=== PATIENT | male | born 1995 | race Caucasian/White ===

== ENCOUNTER 2016-10-03 09:57 | Emergency (ER) | payer SELFPAY ==
[~2016-10-03] VITALS: Ht 172.7 cm; Wt 70.1 kg
[2016-10-03 10:00] VITALS: BP 143/90
[2016-10-03] MEDS ORDERED: FAMOTIDINE 20 MG TABLET ONE (11:11)
[2016-10-03] MEDS ORDERED: MAALOX/HYOSCYAMINE/LIDOCAINE 45 ML BOTTLE ONE (11:11)
[2016-10-03] MEDS ORDERED: MAALOX/HYOSCYAMINE/LIDOCAINE 45 ML BOTTLE PO ONE (11:30)
[2016-10-03] MEDS ORDERED: FAMOTIDINE 20 MG TABLET PO ONE (11:30)
[2016-10-03 12:34] LABS: ASPARTATE AMINO TRANSFERASE 17 U/L (15-37); BLOOD UREA NITROGEN 13 mg/dL (7-18)
== END 2016-10-03 13:27 | disposition home or self-care (01) ==
LOC: ED 13:09
DX: K29.00 Acute gastritis without bleeding (principal); K21.9 Gastro-esophageal reflux disease without esophagitis; F12.10 Cannabis abuse, uncomplicated
CPT/HCPCS: 36415; 76700; 80053; 83690; 85025; 86677

== ENCOUNTER 2018-03-22 07:23 | Emergency (ER) | payer SELFPAY ==
[~2018-03-22] VITALS: Ht 172.7 cm; Wt 79.3 kg
[2018-03-22] MEDS ORDERED: KETOROLAC 60 MG/2 ML IM ONE (08:00)
[2018-03-22 08:09] LABS: BASOPHILS # (AUTO) 0.03 x10^3/uL (0-0.1); BASOPHILS % (AUTO) 0 % (0-1); EOSINOPHILS # (AUTO) 0.11 x10^3/uL (0-0.4); EOSINOPHILS % (AUTO) 1 % (1-7); LYMPHOCYTES # (AUTO) 2.73 x10^3/uL (1-3.4); LYMPHOCYTES % (AUTO) 31 % (22-44); MD NO; MEAN CORPUSCULAR HEMOGLOBIN 29.5 pg (27.5-34.5); MEAN CORPUSCULAR HGB CONC 33.6 g/dL (33.2-36.2); MEAN CORPUSCULAR VOLUME 87.7 fL (81-97); MEAN PLATELET VOLUME 7.9 fL (7.4-10.4); MONOCYTES # (AUTO) 0.72 x10^3/uL (0.2-0.8); MONOCYTES % (AUTO) 8 % (2-9); NEUTROPHILS # (AUTO) 5.23 x10^3/uL (1.8-6.8); NEUTROPHILS % (AUTO) 59 % (42-75); PLATELET COUNT 349 x10^3/uL (130-400); RED BLOOD COUNT 5.46 x10^6/uL (4.38-5.82); RED CELL DISTRIBUTION WIDTH 13.2 % (9.4-14.8)
[2018-03-22 08:12] LABS: MICROSCOPIC NOT IND
[2018-03-22 08:14] LABS: CULTURE INDICATED? NO
[2018-03-22] MEDS ORDERED: ONDANSETRON ODT 4 MG ONE (08:18)
[2018-03-22] MEDS ORDERED: HYDROcodone/APAP 5/325 TABLET ONE (08:18)
[2018-03-22] MEDS ORDERED: KETOROLAC 30 MG/1 ML ONE (08:18)
[2018-03-22 08:22] LABS: ALBUMIN 4.2 g/dL (3.4-5.0); ANION GAP 7 mmol/L (5-15); CALCIUM 9.3 mg/dL (8.5-10.1); CHLORIDE 107 mmol/L (98-107)
[2018-03-22 08:24] VITALS: BP 130/71
[2018-03-22 08:27] LABS: ALANINE AMINOTRANSFERASE 19 U/L (12-78); ALKALINE PHOSPHATASE 83 U/L (45-117); BILIRUBIN,TOTAL 1.2 mg/dL (0.2-1.0); CREATININE 0.97 mg/dL (0.7-1.3); TOTAL PROTEIN 8.1 g/dL (6.4-8.2)
[2018-03-22] MEDS ORDERED: HYDROcodone/APAP 5/325 TABLET PO ONE (08:30)
[2018-03-22] MEDS ORDERED: ONDANSETRON ODT 4 MG PO ONE (08:30)
== END 2018-03-22 09:34 | disposition home or self-care (01) ==
LOC: ED 09:21
DX: M54.5 Low back pain (principal); R11.0 Nausea; R30.0 Dysuria; K21.9 Gastro-esophageal reflux disease without esophagitis
CPT/HCPCS: 36415; 74176; 80053; 81003; 85025; 96372; 99284; J1885; Q0162